=== PATIENT | female | born 1985 | race African-American/Black ===

== ENCOUNTER 2017-02-28 08:41 | Emergency (ER) | payer OTHER ==
[2017-02-28 08:45] VITALS: BP 134/81; PULSE 106; TEMP 98.6; BMI 32.8
[2017-02-28] MEDS ORDERED: SODIUM CHLORIDE 1,000 ML IV STA (10:12)
[2017-02-28] MEDS ORDERED: ONDANSETRON 4 MG/2 ML VIAL IVPB ONE (10:12)
[2017-02-28] MEDS ORDERED: FAMOTIDINE 20 MG/50 ML IVPB 20 MG/50 ML MG IVPB ONE ×2 (10:12→10:31)
--- NOTE | 2017-02-28 10:23 | PDOC ---
History of Present Illness - General History Source: Patient Exam Limitations: No Limitations - History of Present Illness Initial Comments: 02/28/17 10:30 The patient is a 32 year old female with no significant PMH who presents to the emergency department with abdominal pain, vomiting, and diarrhea beginning approximately 8 hours ago. The patient reports waking up at 2AM to a sharp abdominal pain which has been continuous since then. She describes the abdominal pain as localized in the epigastric and LUQ region She also reports 3 episodes of concurrent vomiting and diarrhea since 2AM. The patient denies any recent travel or sick contacts. The patient denies . The patient denies chest pain, shortness of breath, headache and dizziness. Denies fever, chills, and constipation. Denies dysuria, frequency, urgency and hematuria. Allergies: NKA Past surgical history: None reported. Social history: No reported toxic habits. PCP: None reported. <Xavi Catalan - Last Filed: 02/28/17 10:30> - General History Source: Patient Exam Limitations: No Limitations <Xavi Trevino - Last Filed: 02/28/17 11:35> - General Chief Complaint: Vomiting/Diarrhea Stated Complaint: NAUSEA/VOMITING Time Seen by Provider: 02/28/17 09:16 Past History <Xavi Catalan - Last Filed: 02/28/17 10:30> - Past Medical History COPD: No - Suicide/Smoking/Psychosocial Hx Smoking History: Never smoked Have you smoked in the past 12 months: No Information on smoking cessation initiated: No Hx Alcohol Use: No Drug/Substance Use Hx: No Substance Use Type: None <Xavi Trevino - Last Filed: 02/28/17 11:35> - Past Medical History Allergies/Adverse Reactions: Allergies Allergy/AdvReac Type Severity Reaction Status Date / Time No Known Allergies Allergy Verified 02/28/17 08:43 Home Medications: Ambulatory Orders Ibuprofen 600 mg PO Q6H PRN #15 tablet 02/28/17 Mag Hydrox/Al Hydrox/Simeth [Mylanta Suspension -] 30 ml PO Q6H PRN #1 bottle Ondansetron HCl [Zofran] 4 mg PO Q8H PRN #12 tablet 02/28/17 Ranitidine HCl [Zantac] 150 mg PO BID PRN #14 tablet 02/28/17 Review of Systems - Review of Systems Able to Perform ROS?: Yes Comments:: 02/28/17 10:31 GENERAL/CONSTITUTIONAL: No fever or chills. No weakness. HEAD, EYES, EARS, NOSE AND THROAT: No change in vision. No ear pain or discharge. No sore throat. CARDIOVASCULAR: No chest pain or shortness of breath. RESPIRATORY: No cough, wheezing, or hemoptysis. GASTROINTESTINAL: (+) LUQ and epigastric abdominal pain. (+) Nausea. (+) Vomiting. (+) Diarrhea. No constipation. GENITOURINARY: No dysuria, frequency, or change in urination. MUSCULOSKELETAL: No joint or muscle swelling or pain. No neck or back pain. SKIN: No rash NEUROLOGIC: No headache, vertigo, loss of consciousness, or change in strength/ sensation. ENDOCRINE: No increased thirst. No abnormal weight change. HEMATOLOGIC/LYMPHATIC: No anemia, easy bleeding, or history of blood clots. ALLERGIC/IMMUNOLOGIC: No hives or skin allergy. <Xavi Catalan - Last Filed: 02/28/17 10:30> *Physical Exam - Vital Signs Last Vital Signs Temp Pulse Resp BP Pulse Ox 98.6 F 106 H 18 134/81 100 02/28/17 08:43 02/28/17 08:43 02/28/17 08:43 02/28/17 08:43 02/28/17 08:43 - Physical Exam Comments: 02/28/17 10:31 GENERAL: (+) Obese. Awake, alert, and fully oriented, in no acute distress HEAD: No signs of trauma EYES: PERRLA, EOMI, sclera anicteric, conjunctiva clear ENT: Auricles normal inspection, hearing grossly normal, nares patent, oropharynx clear without exudates. Moist mucosa NECK: Normal ROM, supple, no lymphadenopathy, JVD, or masses LUNGS: Breath sounds equal, clear to auscultation bilaterally. No wheezes, and no crackles HEART: Regular rate and rhythm, normal S1 and S2, no murmurs, rubs or gallops ABDOMEN: (+) LUQ and epigastric tenderness to palpation. Soft, normoactive bowel sounds. No guarding, no rebound. No masses EXTREMITIES: Normal range of motion, no edema. No clubbing or cyanosis. No cords, erythema, or tenderness NEUROLOGICAL: Cranial nerves II through XII grossly intact. Normal speech, normal gait SKIN: Warm, Dry, normal turgor, no rashes or lesions noted. <Xavi Catalan - Last Filed: 02/28/17 10:30> - Vital Signs Last Vital Signs Temp Pulse Resp BP Pulse Ox 98.6 F 106 H 18 134/81 100 02/28/17 08:43 02/28/17 08:43 02/28/17 08:43 02/28/17 08:43 02/28/17 08:43 <Xavi Trevino - Last Filed: 02/28/17 11:35> ED Treatment Course - ADDITIONAL ORDERS Additional order review: Laboratory Results 02/28/17 09:50 Urine HCG, Qual Negative <Xavi Catalan - Last Filed: 02/28/17 10:30> - LABORATORY CBC & Chemistry Diagram: 02/28/17 10:35 02/28/17 10:35 - ADDITIONAL ORDERS Additional order review: Laboratory Results 02/28/17 09:50 Urine HCG, Qual Negative <Xavi Trevino - Last Filed: 02/28/17 11:35> Medical Decision Making - Medical Decision Making 02/28/17 10:20 A portion of this note was documented by scribe services under my direction. I have reviewed the details of the note, within reason, and agree with the documentation with the following case summary and management plan written by me. Patient treated in the ED. Nursing notes are reviewed and incorporated into the medical decision-making. Vital signs reviewed. Peripheral IV access obtained by the nurse, laboratory studies are drawn and sent, reviewed and interpreted by myself. Vital Signs Temp Pulse Resp BP Pulse Ox 98.6 F 106 H 18 134/81 100 02/28/17 08:43 02/28/17 08:43 02/28/17 08:43 02/28/17 08:43 02/28/17 08:43 32-year-old female patient obese with no past medical history presents with nausea, vomiting, diarrhea. Patient reports that she was in her usual state of health yesterday. No sick contacts, recent travels or bad food. Stated that she woke up around 3:00 this morning with crampy left upper quadrant pain with nausea and vomiting and diarrhea. No fevers or chills. I suspect patient likely has viral gastritis. We'll obtain blood work, urine analysis, prexy test. Treat symptoms and reassess. Overall, the patient is nontoxic appearing and with no right upper quadrant tenderness. Negative Sung sign. Medications and reassess. 02/28/17 11:27 CBC, BMP 02/28/17 10:35 02/28/17 10:35 CMP Sodium 138 mmol/L (136-145) 02/28/17 10:35 Potassium 3.9 mmol/L (3.5-5.1) 02/28/17 10:35 Chloride 105 mmol/L (98-107) 02/28/17 10:35 Carbon Dioxide 26 mmol/L (21-32) 02/28/17 10:35 Anion Gap 7 (8-16) L 02/28/17 10:35 BUN 10 mg/dL (7-18) 02/28/17 10:35 Creatinine 0.6 mg/dL (0.55-1.02) 02/28/17 10:35 Creat Clearance w eGFR > 60 (>60) 02/28/17 10:35 Random Glucose 111 mg/dL (74-106) H 02/28/17 10:35 Calcium 8.5 mg/dL (8.5-10.1) 02/28/17 10:35 Total Bilirubin 0.2 mg/dL (0.2-1.0) 02/28/17 10:35 AST 11 U/L (15-37) L 02/28/17 10:35 ALT 14 U/L (12-78) 02/28/17 10:35 Alkaline Phosphatase 62 U/L (45-117) 02/28/17 10:35 Total Protein 7.4 g/dl (6.4-8.2) 02/28/17 10:35 Albumin 3.1 g/dl (3.4-5.0) L 02/28/17 10:35 Lipase 96 U/L (73-393) 02/28/17 10:35 Urine Test Results Urine Color Yellow 02/28/17 09:50 Urine Appearance Slcloudy 02/28/17 09:50 Urine pH 5.0 (5.0-8.0) 02/28/17 09:50 Ur Specific [place] 1.026 (1.001-1.035) 02/28/17 09:50 Urine Protein Negative (NEGATIVE) 02/28/17 09:50 Urine Glucose (UA) Negative (NEGATIVE) 02/28/17 09:50 Urine Ketones Negative (NEGATIVE) 02/28/17 09:50 Urine Blood 3+ (NEGATIVE) H 02/28/17 09:50 Urine Nitrite Negative (NEGATIVE) 02/28/17 09:50 Urine Bilirubin Negative (NEGATIVE) 02/28/17 09:50 Ur Epithelial Cells Rare /hpf (FEW) 02/28/17 09:50 Urine Mucus Few 02/28/17 09:50 02/28/17 11:28 Urine test negative. The patient is currently on her menstrual period. Patient reports feeling better. I suspect again this is likely viral gastritis. Patient feels comfortable being discharged. Symptom control and discharge home. I discussed the physical exam findings, ancillary test results and final diagnoses with the patient. I answered all of the patient's questions. The patient was satisfied with the care received and felt comfortable with the discharge plan and treatment plan. The patient will call their primary care physician within 24 hours to arrange follow-up and will return to the Emergency Department with any new, persistant or worsening symptoms. <Xavi Trevino - Last Filed: 02/28/17 11:35> *DC/Admit/Observation/Transfer - Attestations Scribe Attestion: 02/28/17 10:31 Documentation prepared by Xavi Catalan, acting as medical billing service for Xavi Trevino MD. <Xavi Catalan - Last Filed: 02/28/17 10:30> - Discharge Dispostion Admit: No <Xavi Trevino - Last Filed: 02/28/17 11:35> Diagnosis at time of Disposition: Gastroenteritis - Discharge Dispostion Disposition: HOME Condition at time of disposition: Improved - Prescriptions Prescriptions: Ibuprofen 600 mg PO Q6H PRN #15 tablet PRN Reason: Pain/Fever Mag Hydrox/Al Hydrox/Simeth [Mylanta Suspension -] 30 ml PO Q6H PRN #1 bottle PRN Reason: Abdominal Pain Ondansetron HCl [Zofran] 4 mg PO Q8H PRN #12 tablet PRN Reason: Nausea Ranitidine HCl [Zantac] 150 mg PO BID PRN #14 tablet PRN Reason: GERD - Patient Instructions Printed Discharge Instructions: DI for Viral Gastroenteritis -- Adult Additional Instructions: Please drink plenty of fluids and rest. Take the medications as prescribed for symptom control. It may take a day or two before your symptoms improve. - Post Discharge Activity Forms/Work/School Notes: Back to Work
[2017-02-28 10:28] LABS: URINE APPEARANCE SLCLOUDY; URINE BILIRUBIN NEGATIVE (NEGATIVE); URINE BLOOD 3+ (NEGATIVE); URINE COLOR YELLOW; URINE GLUCOSE (UA) NEGATIVE (NEGATIVE); URINE KETONE NEGATIVE (NEGATIVE); URINE NITRITE NEGATIVE (NEGATIVE); URINE PROTEIN NEGATIVE (NEGATIVE); URINE UROBILINOGEN NEGATIVE mg/dL (0.2-1.0)
[2017-02-28] MEDS ORDERED: ONDANSETRON 4 MG/2 ML VIAL ONE (10:31)
[2017-02-28 10:37] LABS: URINE MUCUS FEW; URINE RBC 15; URINE WBC 2
[2017-02-28 10:48] LABS: BASOPHIL 0.2 % (0-2.0); EOSINOPHIL 0.6 % (0-4.5); MCH 20.8 pg (25.7-33.7); MEAN CELL VOLUME 69.3 fl (80-96); MEAN PLT VOLUME 7.3 fl (7.5-11.1); NEUTROPHILS 86.2 % (42.8-82.8); PLATELET COUNT 412 K/MM3 (134-434); RDW 20.2 % (11.6-15.6); WHITE BLOOD COUNT 11.4 K/mm3 (4.0-10.0)
[2017-02-28 11:10] LABS: ALBUMIN 3.1 g/dl (3.4-5.0); ALK PHOS 62 U/L (45-117); ANION GAP 7 (8-16); BILIRUBIN,TOTAL 0.2 mg/dL (0.2-1.0); CALCIUM 8.5 mg/dL (8.5-10.1); CO2 26 mmol/L (21-32); CREATININE 0.6 mg/dL (0.55-1.02); GLUCOSE,RANDOM 111 mg/dL (74-106); SGOT/AST 11 U/L (15-37); SGPT/ALT 14 U/L (12-78); TOT PROT 7.4 g/dl (6.4-8.2)
[2017-02-28 11:21] LABS: ANISOCYTOSIS 1+; HYPOCHROMIA 3+; MICROCYTOSIS 2+; OVALOCYTE 2+; TEAR DROP CELLS 1+
[2017-02-28] MEDS ORDERED: KETOROLAC TROMETHAMINE 30 MG/1 ML VIAL IVPUSH ONE (11:28)
[2017-02-28] MEDS ORDERED: MAG HYDROX/AL HYDROX/SIMETH 30 ML UNIT-DOSE CUP PO ONE (11:28)
[2017-02-28] MEDS ORDERED: MAG HYDROX/AL HYDROX/SIMETH 30 ML UNIT-DOSE CUP ONE (11:45)
[2017-02-28 17:06] LABS: URINE LEUK ESTERASE Negative (NEGATIVE)
== END 2017-02-28 11:54 | disposition home or self-care (01) ==
LOC: JER 08:41
PROC: 3E033GC Introduction of Other Therapeutic Substance into Peripheral Vein, Percutaneous Approach (ICD-10-PCS; principal; 2017-02-28)
PROC: 3E033GC Introduction of Other Therapeutic Substance into Peripheral Vein, Percutaneous Approach (ICD-10-PCS; 2017-02-28)
PROC: 3E0333Z Introduction of Anti-inflammatory into Peripheral Vein, Percutaneous Approach (ICD-10-PCS; 2017-02-28)
DX: K52.9 Noninfective gastroenteritis and colitis, unspecified (principal)
CPT/HCPCS: 36415; 80053; 81003; 81015; 83690; 84703; 85025; 96365; 96375; 99282-25

== ENCOUNTER 2018-10-21 20:03 | Emergency (ER) | payer OTHER ==
[2018-10-21 20:11] VITALS: TEMP 98.4; BMI 37.5
[2018-10-21 20:48] VITALS: BP 142/89; PULSE 96
[2018-10-21] MEDS ORDERED: RANITIDINE HCL 150 MG TABLET (FP) PO ONE (20:50)
[2018-10-21] MEDS ORDERED: MAG HYDROX/AL HYDROX/SIMETH -MYLANTA- ORAL SUSPENSION PO ONE (20:50)
--- NOTE | 2018-10-21 20:50 | PDOC ---
History of Present Illness - General Chief Complaint: Head/Neck problem Stated Complaint: SICK Time Seen by Provider: 10/21/18 20:24 History Source: Patient Exam Limitations: No Limitations - History of Present Illness Initial Comments: 10/21/18 20:45 33 yo female pmh of GERD (not on medication) presents to the ED for feelings of food stuck in her throat after a meal, burping and intermittent tingling bilateral lower ext. Pt states the feelings of food stuck in her throat started today after eating shrimp and have subsided but feels as though she needs to burp. Pts complaint of bilateral tingling start from the knee down, denies lower back pain/trauma, incontinence/retention of stool or urine, weakness in the legs, abdominal pain, F/C/N/V, CP, SOB. Past History - Past Medical History Allergies/Adverse Reactions: Allergies Allergy/AdvReac Type Severity Reaction Status Date / Time No Known Allergies Allergy Verified 10/21/18 20:11 Home Medications: Ambulatory Orders Ibuprofen 600 mg PO Q6H PRN #15 tablet 02/28/17 Mag Hydrox/Al Hydrox/Simeth [Mylanta Suspension -] 30 ml PO Q6H PRN #1 bottle Ondansetron HCl [Zofran] 4 mg PO Q8H PRN #12 tablet 02/28/17 Ranitidine HCl [Zantac] 150 mg PO BID PRN #14 tablet 02/28/17 Nitrofurantoin Macrocrystal [Nitrofurantoin] 100 mg PO BID 5 Days #10 capsule COPD: No - Suicide/Smoking/Psychosocial Hx Smoking History: Never smoked Have you smoked in the past 12 months: No Hx Alcohol Use: No Drug/Substance Use Hx: No Substance Use Type: None Review of Systems - Review of Systems Constitutional: No: Chills, Fever HEENTM: Yes: Other (sensation of FB in throat). No: Blurred Vision Respiratory: No: Shortness of Breath Cardiac (ROS): No: Chest Pain, Edema, Palpitations ABD/GI: No: Constipated, Diarrhea, Nausea, Vomiting : No: Burning, Dysuria, Frequency, Flank Pain Musculoskeletal: Yes: Other (numbness bilateral lower ext) Integumentary: No: Change in Color Neurological: No: Headache *Physical Exam - Vital Signs Last Vital Signs Temp Pulse Resp BP Pulse Ox 98.4 F 106 H 18 141/94 100 10/21/18 20:08 10/21/18 20:08 10/21/18 20:08 10/21/18 20:08 10/21/18 20:08 - Physical Exam General Appearance: Yes: Nourished, Appropriately Dressed. No: Apparent Distress HEENT: positive: EOMI, Normal Voice. negative: Excessive drooling Neck: positive: Supple. negative: Carotid bruit Respiratory/Chest: positive: Lungs Clear, Normal Breath Sounds. negative: Accessory Muscle Use, Crackles, Rales, Rhonchi, Wheezing Cardiovascular: positive: Regular Rhythm, S1, S2, Tachycardia. negative: Edema , JVD, Murmur Vascular Pulses: Dorsalis-Pedis (R): 4+, Doralis-Pedis (L): 4+ Gastrointestinal/Abdominal: positive: Flat, Soft. negative: Pulsatile Mass, Distended, Guarding, Rebound, Tenderness Extremity: positive: Normal Capillary Refill Integumentary: positive: Normal Color, Dry, Warm Neurologic: positive: treating engineer II-XII NML intact, Fully Oriented, Alert, Normal Mood/ Affect, Normal Response, Motor Strength 5/5. negative: Facial Droop, Numbness, Sensory Deficit, Confused, Disoriented ED Treatment Course - LABORATORY CBC & Chemistry Diagram: 10/21/18 21:25 10/21/18 21:25 Medical Decision Making - Medical Decision Making 33 yo female pmh of GERD (not on medication) presents to the ED for feelings of food stuck in her throat after a meal, burping and intermittent tingling bilateral lower ext. Pt states the feelings of food stuck in her throat started today after eating shrimp and have subsided but feels as though she needs to burp. Pts complaint of bilateral tingling start from the knee down, denies lower back pain/trauma, incontinence/retention of stool or urine, weakness in the legs, abdominal pain, F/C/N/V, CP, SOB. Vitals show elevated HR otherwise wnl labs, US, urine preg, EKG Maalox and zantac given for likely GERD Labs WNL EKG NSR no ST changes Urine preg neg UA positive for UTI, will treat with ab Pt states all complaints resolved prior to ED arrival, pt has no active medical complaints and is safe for DC home with PCP f/u and GI f/u Pt agrees and understands with plan. *DC/Admit/Observation/Transfer Diagnosis at time of Disposition: Tingling - Discharge Dispostion Disposition: HOME Condition at time of disposition: Stable Decision to Admit order: No - Prescriptions Prescriptions: Nitrofurantoin Macrocrystal [Nitrofurantoin] 100 mg PO BID 5 Days #10 capsule - Referrals - Patient Instructions Printed Discharge Instructions: DI for Numbness/tingling Additional Instructions: Please see your primary doctor within the next 48 hours and discuss you low hemoglobin level. Take the antibiotic sent to your pharmacy as prescribed. Make an appointment with the GI doctor to discuss you acid reflux, belching and feelings of having something stuck in your throat. Return to the ER for new or concerning symptoms including but not limited to: chest pain, difficulty breathing, lightheadedness, dizziness, high fevers, inability to eat or drink. Thank you - Post Discharge Activity
[2018-10-21] MEDS ORDERED: MAG HYDROX/AL HYDROX/SIMETH 30 ML UNIT-DOSE CUP ONE (21:03)
[2018-10-21] MEDS ORDERED: RANITIDINE HCL 150 MG TABLET (FP) ONE (21:03)
[2018-10-21 21:28] LABS: EPI CELLS 2.9 /HPF (0-5/HPF); HYALINE CASTS 1 /lpf (0-8); URINE APPEARANCE TURBID; URINE BACTERIA 180.9 /hpf (NEGATIVE); URINE BILIRUBIN NEGATIVE (NEGATIVE); URINE COLOR YELLOW; URINE GLUCOSE (UA) NEGATIVE (NEGATIVE); URINE KETONE TRACE (NEGATIVE); URINE LEUK ESTERASE 1+ (NEGATIVE); URINE NITRITE NEGATIVE (NEGATIVE); URINE PROTEIN 1+ (NEGATIVE); URINE RBC 1445 /hpf (0-4); URINE WBC 7 /hpf (0-5)
[2018-10-21 21:42] LABS: HEMATOCRIT 27.3 % (32.4-45.2); HEMOGLOBIN 8.4 GM/dL (10.7-15.3); MCH 20.7 pg (25.7-33.7); MCHC 30.7 g/dl (32.0-36.0); MEAN CELL VOLUME 67.3 fl (80-96); MEAN PLT VOLUME 7.1 fl (7.5-11.1); PLATELET COUNT 628 K/MM3 (134-434); RBC 4.05 M/mm3 (3.60-5.2); RDW 19.7 % (11.6-15.6); WHITE BLOOD COUNT 8.4 K/mm3 (4.0-10.0)
[2018-10-21 22:04] LABS: ALBUMIN 3.4 g/dl (3.4-5.0); ALK PHOS 62 U/L (45-117); ANION GAP 7 MMOL/L (8-16); BILIRUBIN,TOTAL 0.1 mg/dL (0.2-1); BLOOD UREA NITROGEN 8.9 mg/dL (7-18); CALCIUM 8.6 mg/dL (8.5-10.1); CHLORIDE 108 mmol/L (98-107); CO2 25 mmol/L (21-32); CREATININE 0.7 mg/dL (0.55-1.3); GLUCOSE,RANDOM 102 mg/dL (74-106); POTASSIUM 4.1 mmol/L (3.5-5.1); SGOT/AST 14 U/L (15-37); SGPT/ALT 19 U/L (13-61); SODIUM 140 mmol/L (136-145); TOT PROT 7.8 g/dl (6.4-8.2)
--- NOTE | 2018-10-21 22:05 | PDOC ---
Attending Attestation - Resident Resident Name: MilanRony thomas - ED Attending Attestation I have performed the following: I have examined & evaluated the patient, The case was reviewed & discussed with the resident, I agree w/resident's findings & plan, Exceptions are as noted - HPI HPI: 10/21/18 22:03 33 F with h/o GERD presenting with leg tingling and sensation of food stuck in her throat. Pt states that her legs have been tingling for 3 days. States that she feels it in both her legs. Denies any weakness/numbness. Denies pain. Pt states that it comes and goes. Does not currently have any leg tingling sensation. Pt also complaining of sensation that food is stuck in her throat. She states that she ate shrimp at 5pm today and immediately felt a sensation that food was stuck in her throat. This lasted about an hour before subsiding completely. Pt now has no complaints. Denies any chest pain/SOB. Denies difficulty tolerating PO. Denies abdominal pain. - Physicial Exam PE: 10/21/18 22:04 "GENERAL: Awake, alert, and fully oriented, in no acute distress. HEAD: No signs of trauma EYES: PERRLA, EOMI, sclera anicteric, conjunctiva clear ENT: Auricles normal inspection, hearing grossly normal, nares patent, oropharynx clear without exudates. Moist mucosa NECK: Nontender, no stepoffs, Normal ROM, supple, no lymphadenopathy, JVD, or masses LUNGS: Breath sounds equal, clear to auscultation bilaterally. No wheezes, and no crackles HEART: Regular rate and rhythm, normal S1 and S2, no murmurs, rubs or gallops ABDOMEN: Soft, nontender, normoactive bowel sounds. No guarding, no rebound. No masses EXTREMITIES: Normal range of motion, no edema. No clubbing or cyanosis. No cords, erythema, or tenderness NEUROLOGICAL: Cranial nerves II through XII intact. 5/5 strength and sensation in all extremities, Normal speech, normal gait, normal cerebellar function SKIN: Warm, Dry, normal turgor, no rashes or lesions noted. - Medical Decision Making 10/21/18 22:04 33 F with leg tingling and FB sensation in throat, both now resolved. Will check lytes and cardiac enzymes + EKG, though low suspicion for any sort of acute process. - Labs, trop - EKG - GI cocktail 10/21/18 22:06 Labs notable for anemia. Hb 8.4 today, was 9.1 previously. Pt without any symptoms of anemia. This is likely her baseline Hb. Trop negative Lytes wnl Will DC with PMD f/u Pt is well appearing, with normal vitals. Clinically stable for DC at this time. I discussed the physical exam findings, ancillary test results and final diagnoses with the patient. I answered all of the patient's questions. The patient was satisfied with the care received and felt comfortable with the discharge plan and treatment plan. The patient agrees to follow up with the primary care physician within 24-72 hours.
--- NOTE | 2018-10-22 13:04 | EKG ---
Test Reason : Blood Pressure : / mmHG Vent. Rate : 089 BPM Atrial Rate : 089 BPM P-R Int : 162 ms QRS Dur : 090 ms QT Int : 364 ms P-R-T Axes : 031 -23 008 degrees QTc Int : 442 ms NORMAL SINUS RHYTHM POSSIBLE ANTERIOR INFARCT , AGE UNDETERMINED ABNORMAL ECG NO PREVIOUS ECGS AVAILABLE Confirmed by MD CHERYL, MICHELLE ([id number]) on 10/22/2018 1:04:19 PM Referred By: Confirmed By:MICHELLE LUNA MD
== END 2018-10-21 22:43 | disposition home or self-care (01) ==
LOC: JER 20:03
DX: K21.9 Gastro-esophageal reflux disease without esophagitis (principal); R09.89 Other specified symptoms and signs involving the circulatory and respiratory systems; R20.2 Paresthesia of skin
CPT/HCPCS: 36415; 80053; 81003; 82550; 84484; 84703; 85027; 93005; 93010; 99282-25

== ENCOUNTER 2019-04-27 12:00 | Emergency (ER) | payer OTHER ==
[2019-04-27 12:14] VITALS: BP 140/83; PULSE 96; TEMP 98; BMI 36.0
--- NOTE | 2019-04-27 12:30 | PDOC ---
History of Present Illness - General Chief Complaint: Pain Stated Complaint: NAUSEA & VOMITING Time Seen by Provider: 04/27/19 12:15 History Source: Patient - History of Present Illness Initial Comments: 04/27/19 12:57 Chief complaint: Vomiting Patient 34-year-old female with no significant medical history who states that her left leg was restless last night, this is been happening on and off, patient had 2 AM all of a sudden threw up once. No fever, no diarrhea. Patient then had tingling to her hands and mouth. Patient is asymptomatic now patient also concerned because there was blood in her vomit. GENERAL/CONSTITUTIONAL: No fever, weakness. dizziness HEAD, EYES, EARS, NOSE AND THROAT: No change in vision. No ear pain or discharge. No sore throat. CARDIOVASCULAR: No chest pain RESPIRATORY: No shortness of breath or cough GASTROINTESTINAL: No pain, nausea, +vomiting, no: Diarrhea or constipation GENITOURINARY: No dysuria MUSCULOSKELETAL: No neck or back pain, + leg spasm SKIN: No rash NEUROLOGIC: No headache, vertigo, loss of consciousness, or loss of sensation. GENERAL: The patient is awake, alert, and fully oriented, in no acute distress. HEAD: Normal with no signs of trauma. EYES: Pupils equal, round and reactive to light, sclera anicteric, conjunctiva clear. ENT: pharynx: no erythema, no exudate, uvula midline NECK: supple CHEST: clear, nontender, rr ABD: soft, nontender BACK: no tenderness or signs of injury EXTREMITIES: Normal range of motion, no edema. NEUROLOGICAL: Normal speech, normal gait. SKIN: Warm, Dry Past History - Past Medical History Allergies/Adverse Reactions: Allergies Allergy/AdvReac Type Severity Reaction Status Date / Time No Known Allergies Allergy Verified 04/27/19 12:15 Home Medications: Ambulatory Orders Ibuprofen 600 mg PO Q6H PRN #15 tablet 02/28/17 Mag Hydrox/Al Hydrox/Simeth [Mylanta Suspension -] 30 ml PO Q6H PRN #1 bottle Ondansetron HCl [Zofran] 4 mg PO Q8H PRN #12 tablet 02/28/17 Ranitidine HCl [Zantac] 150 mg PO BID PRN #14 tablet 02/28/17 Nitrofurantoin Macrocrystal [Nitrofurantoin] 100 mg PO BID 5 Days #10 capsule COPD: No - Psycho Social/Smoking Cessation Hx Smoking History: Never smoked Have you smoked in the past 12 months: No Hx Alcohol Use: No Drug/Substance Use Hx: No Substance Use Type: None *Physical Exam - Vital Signs Last Vital Signs Temp Pulse Resp BP Pulse Ox 98 F 96 H 18 140/83 100 04/27/19 12:11 04/27/19 12:11 04/27/19 12:11 04/27/19 12:11 04/27/19 12:11 ED Treatment Course - LABORATORY CBC & Chemistry Diagram: 04/27/19 12:40 04/27/19 12:40 Medical Decision Making - Medical Decision Making 04/27/19 12:58 34-year-old female with on and off leg spasms, vomited last night. Feels better today, no fever or abdominal pain, abdominal exam is benign. Patient was last here in the summer, she was found to be anemic. Patient has not been able to follow-up because of insurance issues. Given history and symptoms we will just get baseline labs and's screen for the flu although unlikely. Will also check for Discharge - Discharge Information Problems reviewed: Yes Clinical Impression/Diagnosis: Vomiting Qualifiers: Vomiting type: unspecified Vomiting Intractability: non-intractable Nausea presence: unspecified Qualified Code(s): R11.10 - Vomiting, unspecified Condition: Stable Disposition: HOME - Admission No - Follow up/Referral - Patient Discharge Instructions Patient Printed Discharge Instructions: Nausea and Vomiting-Adult Additional Instructions: Your hemoglobin has improved, it is 9.5. It is very important for you to find a primary care doctor to monitor your health status. Clear fluids. No vomiting can eat bland foods, no spicy or greasy foods Return to the nearest ER if fever, vomiting or worsening pain Followup with your doctor in one to 2 days - Post Discharge Activity
[2019-04-27] MEDS ORDERED: FAMOTIDINE 20 MG TABLET PO ONE (12:31)
[2019-04-27] MEDS ORDERED: FAMOTIDINE 20 MG TABLET ONE (12:34)
[2019-04-27 13:19] LABS: BASO % 0.2 % (0-2.0); EOS % 0.8 % (0-4.5); HEMATOCRIT 31.4 % (32.4-45.2); HEMOGLOBIN 9.5 GM/dL (10.7-15.3); LYMPH % 28.1 % (8-40); MCH 21.3 pg (25.7-33.7); MCHC 30.1 g/dl (32.0-36.0); MEAN CELL VOLUME 70.9 fl (80-96); MEAN PLT VOLUME 7.4 fl (7.5-11.1); MONO % 5.7 % (3.8-10.2); NEUT % 65.2 % (42.8-82.8); PLATELET COUNT 422 K/MM3 (134-434); RBC 4.44 M/mm3 (3.60-5.2); WHITE BLOOD COUNT 11.5 K/mm3 (4.0-10.0)
[2019-04-27 13:20] LABS: ALBUMIN 3.6 g/dl (3.4-5.0); BILIRUBIN,TOTAL 0.3 mg/dL (0.2-1); BLOOD UREA NITROGEN 10.8 mg/dL (7-18); CALCIUM 9.1 mg/dL (8.5-10.1); CREATININE 0.6 mg/dL (0.55-1.3); POTASSIUM 3.7 mmol/L (3.5-5.1); TOT PROT 8.6 g/dl (6.4-8.2)
[2019-04-27 16:00] LABS: ANISOCYTOSIS 3+; MACROCYTOSIS 0; PLATELET ESTIMATE NORMAL
== END 2019-04-27 14:27 | disposition home or self-care (01) ==
LOC: JERFT 12:00
DX: R11.10 Vomiting, unspecified (principal); Z86.2 Personal history of diseases of the blood and blood-forming organs and certain disorders involving the immune mechanism
CPT/HCPCS: 36415; 80053; 83690; 84703; 85025; 87804; 99282-25

== ENCOUNTER 2020-11-29 07:39 | Emergency (ER) | payer OTHER ==
[2020-11-29 08:24] VITALS: BP 138/87; PULSE 97; TEMP 98.4; BMI 38.9
[2020-11-29] MEDS ORDERED: FLUORESCEIN NA 1 EA STRIP OU ONE (09:05)
[2020-11-29] MEDS ORDERED: FLUORESCEIN NA 1 EA STRIP ONE (09:09)
== END 2020-11-29 09:59 | disposition home or self-care (01) ==
LOC: JER 07:39
DX: H10.33 Unspecified acute conjunctivitis, bilateral (principal)
CPT/HCPCS: 99283-25

== ENCOUNTER 2022-11-09 22:22 | Emergency (ER) | payer OTHER ==
[2022-11-09 22:39] VITALS: BP 126/85; PULSE 86; RESP 20; TEMP 98.4; BMI 37.5
[2022-11-10] MEDS ORDERED: KETOROLAC TROMETHAMINE 30 MG/1 ML VIAL IM ONE (00:42)
[2022-11-10] MEDS ORDERED: KETOROLAC TROMETHAMINE 30 MG/1 ML VIAL ONE (00:42)
== END 2022-11-10 02:03 | disposition home or self-care (01) ==
LOC: JER 22:22
PROC: 3E0233Z Introduction of Anti-inflammatory into Muscle, Percutaneous Approach (ICD-10-PCS; principal; 2022-11-10)
DX: R07.89 Other chest pain (principal); M79.601 Pain in right arm
CPT/HCPCS: 71046-TC-FY; 99284-25

== ENCOUNTER 2023-11-25 19:01 | Emergency (ER) | payer OTHER ==
[2023-11-25 19:09] VITALS: BP 124/83; PULSE 96; RESP 18; TEMP 98.5; BMI 37.5
[2023-11-25] MEDS ORDERED: IBUPROFEN 400 MG TABLET (FP) PO ONE (20:00)
[2023-11-25] MEDS: IBUPROFEN 600 MG TABLET (FP) PO ONE (20:04)
== END 2023-11-25 21:15 | disposition home or self-care (01) ==
LOC: JERFT 19:01
DX: M25.532 Pain in left wrist (principal); M77.8 Other enthesopathies, not elsewhere classified; M25.432 Effusion, left wrist
CPT/HCPCS: 73110-TC-LT-FY; 99283-25

== ENCOUNTER 2024-07-19 13:21 | Emergency (ER) | payer OTHER ==
[2024-07-19 13:28] VITALS: BP 148/85; PULSE 100; RESP 20; TEMP 98.3; BMI 37.5
[2024-07-19 14:23] LABS: ABSOLUTE IMMATURE GRANULOCYTES 0.04 x10^3/uL (0.0-0.031); BASOPHILS # 0.03 x10^3/uL (0.01-0.08); EOSINOPHIL % 0.7 % (0.7-5.8); EOSINOPHILS # 0.08 x10^3/uL (0.04-0.36); HEMATOCRIT 32.8 % (34.1-44.9); HEMOGLOBIN 9.4 g/dL (11.2-15.7); MCHC 28.7 g/dl (32.2-35.5); MEAN CELL VOLUME 74.5 fl (79.4-94.8); MEAN PLT VOLUME 9.1 fl (9.4-12.3); MONOCYTE # 0.74 x10^3/uL (0.24-0.86); MONOCYTE % 6.3 % (4.7-12.5); PLATELET COUNT 420 x10^3/uL (182-369); RDW 23.9 % (12.1-16.8)
[2024-07-19 14:26] LABS: HCG,QUALITATIVE URINE Positive
[2024-07-19 14:28] LABS: EPI CELLS >36 /uL (0-25.1); HYALINE CASTS 7 /uL (0-3.1); URINE APPEARANCE CLOUDY; URINE BACTERIA 2018 /uL (0-1359); URINE BILIRUBIN 1+ (NEGATIVE); URINE COLOR DK YELLOW; URINE GLUCOSE (UA) NEGATIVE (NEGATIVE); URINE KETONE 1+ (NEGATIVE); URINE LEUK ESTERASE TRACE (NEGATIVE); URINE NITRITE NEGATIVE (NEGATIVE); URINE PROTEIN 1+ (NEGATIVE); URINE WBC 27 /uL (0-25.8)
[2024-07-19 14:48] LABS: POTASSIUM 3.9 mmol/L (3.5-5.1)
[2024-07-19 14:50] LABS: BLOOD UREA NITROGEN 6.4 mg/dL (7-18); CALCIUM 9.1 mg/dL (8.5-10.1)
[2024-07-19 14:54] LABS: CREATININE 0.5 mg/dL (0.55-1.3)
[2024-07-19 14:55] LABS: BILIRUBIN,TOTAL 0.2 mg/dL (0.2-1); TOT PROT 7.8 g/dl (6.4-8.2)
[2024-07-19 15:19] LABS: URINE RBC 44 /uL (0-23.9)
[2024-07-19] MEDS ORDERED: CEPHALEXIN MONOHYDRATE 500 MG CAPSULE (UD) ONE (16:13)
[2024-07-19] MEDS: CEPHALEXIN MONOHYDRATE 500 MG CAPSULE (UD) PO ONE (16:20)
== END 2024-07-19 16:30 | disposition home or self-care (01) ==
LOC: JER 13:21
DX: O09.512 Supervision of elderly primigravida, second trimester (principal); O23.42 Unspecified infection of urinary tract in pregnancy, second trimester; O34.82 Maternal care for other abnormalities of pelvic organs, second trimester; N83.201 Unspecified ovarian cyst, right side; O99.891 Other specified diseases and conditions complicating pregnancy; M54.50 Low back pain, unspecified; O26.892 Other specified pregnancy related conditions, second trimester; R10.9 Unspecified abdominal pain; Z3A.14 14 weeks gestation of pregnancy
CPT/HCPCS: 36415; 76801-TC; 80053; 81003; 84702; 84703; 85025; 87086; 99284-25

== ENCOUNTER 2024-07-21 17:07 | Emergency (ER) | payer OTHER ==
[2024-07-21 17:13] VITALS: RESP 20; TEMP 97.6; BMI 37.5
[2024-07-21] MEDS ORDERED: LIDOCAINE 4% PATCH TP ONE (18:20)
[2024-07-21] MEDS: LIDOCAINE 4% PATCH TP ONE (18:36)
[2024-07-21 18:40] LABS: ABSOLUTE IMMATURE GRANULOCYTES 0.04 x10^3/uL (0.0-0.031); BASOPHILS # 0.03 x10^3/uL (0.01-0.08); EOSINOPHIL % 0.6 % (0.7-5.8); EOSINOPHILS # 0.08 x10^3/uL (0.04-0.36); HEMATOCRIT 32.6 % (34.1-44.9); HEMOGLOBIN 9.5 g/dL (11.2-15.7); MCHC 29.1 g/dl (32.2-35.5); MEAN CELL VOLUME 74.1 fl (79.4-94.8); MEAN PLT VOLUME 8.7 fl (9.4-12.3); MONOCYTE % 6.5 % (4.7-12.5); PLATELET COUNT 391 x10^3/uL (182-369); RDW 23.7 % (12.1-16.8)
[2024-07-21 18:57] LABS: POTASSIUM 3.5 mmol/L (3.5-5.1)
[2024-07-21 19:04] LABS: BLOOD UREA NITROGEN 7.7 mg/dL (7-18); CALCIUM 9.2 mg/dL (8.5-10.1)
[2024-07-21 19:08] LABS: BILIRUBIN,TOTAL 0.7 mg/dL (0.2-1); CREATININE 0.5 mg/dL (0.55-1.3); TOT PROT 7.7 g/dl (6.4-8.2)
[2024-07-21] MEDS: LIDOCAINE PATCH REMOVAL MC SCH (21:36)
[2024-07-21 21:57] LABS: PH,URINE 5.5 (5.0-8.0); URINE APPEARANCE CLOUDY; URINE BILIRUBIN SMALL (NEGATIVE); URINE COLOR YELLOW; URINE GLUCOSE (UA) NEGATIVE (NEGATIVE); URINE KETONE >=80 mg/dl (NEGATIVE); URINE LEUK ESTERASE NEGATIVE (NEGATIVE); URINE NITRITE NEGATIVE (NEGATIVE); URINE PROTEIN 100 (NEGATIVE)
[2024-07-21 21:58] LABS: HYALINE CASTS 19.06 /uL (0-3.1); URINE BACTERIA 1257.7 /uL (0-1359); URINE RBC 40.8 /uL (0-23.9)
[2024-07-21] MEDS ORDERED: CEPHALEXIN MONOHYDRATE 500 MG CAPSULE (UD) ONE (23:30)
[2024-07-21] MEDS: CEPHALEXIN MONOHYDRATE 500 MG CAPSULE (UD) PO ONE (23:31)
[2024-07-21 23:39] VITALS: BP 119/86; PULSE 92
== END 2024-07-22 00:50 | disposition short-term general hospital (02) ==
LOC: JER 17:07
DX: O09.522 Supervision of elderly multigravida, second trimester (principal); O20.0 Threatened abortion; Z3A.15 15 weeks gestation of pregnancy
CPT/HCPCS: 0241U-QW; 36415; 76775-TC; 76815-TC; 80053; 81003; 84702; 85025; 86850; 86900; 86901; 99285-25